=== PATIENT | male | born 1980 | race Hispanic/Latino ===

== ENCOUNTER 2018-05-04 10:42 | Emergency (ER) | payer OTHER ==
[2018-05-04] MEDS ORDERED: MORPHINE SULFATE 4 MG/1ML SYG ONE (11:08)
[2018-05-04] MEDS ORDERED: DEXAMETHASONE SOD PHOSPHATE 10MG/ML 1ML VIAL ONE (11:08)
[2018-05-04] MEDS ORDERED: ONDANSETRON ODT 4 MG TAB ONE (11:08)
== END 2018-05-04 12:10 | disposition home or self-care (01) ==
LOC: EDH 10:42
DX: M54.16 Radiculopathy, lumbar region (principal); M54.5 Low back pain; M62.830 Muscle spasm of back
CPT/HCPCS: 96372 ×2; 99284; J1100; J2270